=== PATIENT | male | born 1935 | race Caucasian/White ===

== ENCOUNTER → 2018-09-02 | Outpatient (CLI) | payer MEDICARE ==
[~2018-09-02] MED LIST: ASP325TEC PO; ASPIRIN CHEW81 MG PO; CLOPIDOGREL75 MG PO; FINASTERIDE5 MG PO; GABAPENTIN300 MG PO; GEMFIBROZIL1 GM PO; GLIPIZIDE5 MG PO; ISOSORBIDE MONO30 MG PO; LOSARTAN POTAS100 MG PO; METFORMIN HCL850 MG PO; METOPROLOL TART50 MG PO; NORVASC5 MG PO; OMEPRAZOLE40 MG PO; TAMSULOSIN HCL0.4 MG PO; ULTRAM 50MG50 MG PO
== END ==
LOC: CARD 11:40
PROVIDERS: ATTEND Thoracic Surgery (Cardiothoracic Vascular Surgery)
DX: I73.9 Peripheral vascular disease, unspecified (principal)
CPT/HCPCS: 93922; 93925

== ENCOUNTER → 2018-09-18 | Outpatient (CLI) | payer MEDICARE ==
[~2018-09-18] MED LIST changes: +IOPAMIDOL 370 MG/ML 200 ML INFUS..BTL INJ ONE; +SODIUM CHLORIDE 0.9% 100 ML 100 ML ONE; +SODIUM CHLORIDE 0.9% 250ML 500 ML ONE
[2018-09-18 10:16] LABS: CREATININE, SERUM 1.25 mg/dL (0.72-1.25)
--- NOTE | 2018-09-18 15:12 | Diagnostic Imaging Report ---
EXAM: CTA OF THE ABDOMINAL AORTA, PELVIC ARTERIES AND BILATERAL LOWER EXTREMITY. INDICATION: PVD COMPARISON: None TECHNIQUE: Multi-detector CT technology was employed. CTA of the abdomen and pelvis was performed after the administration of IV contrast. Inspiratory and expiratory images were performed with specific attention to the celiac trunk and SMA takeoff. IV CONTRAST: 100 mL of Isovue-370 ORAL CONTRAST: None Technique manipulation was accomplished to maintain the lowest dose possible to the patient. COMPLICATIONS: None RADIATION DOSE: Total DLP: 1081.42 mGy*cm Estimated effective dose: (DLP x 0.015 x size factor) mSv CTDIvol has been reviewed. It is below the limits set by the Radiation Protocol Committee (RPC). For optimization of anatomic evaluation, multiplanar reconstruction, maximum intensity projections, and advanced 3-D off-line postprocessing were performed on a dedicated stand-alone workstation under the direct supervision of the interpreting physician. FINDINGS: Potential study limitations: None. 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 There is no acute aortic pathology. Aortic plaques: Diffuse aortic [place] calcification with scattered plaque not appearing significant. The celiac axis, SMA and ERIC are patent. Mild plaque at the origin of the celiac trunk and SMA. Pelvis vessels: Negative bilateral common iliac occlusion. Right lower extremity: Right common femoral, profundus femoral, superficial femoral, and popliteal arteries are patent. There is a significant stenosis of the distal SFA. There is a patent trifurcation with posterior tibial artery and peroneal artery supply to the foot. Anterior tibial artery is occluded past the bifurcation. Left lower extremity: Right common femoral and profundus femoral arteries are patent. Occlusion of the left SFA at its origin with an isolated reconstituted SFA segment and then an occluded popliteal artery. Tibioperoneal trunk is reconstituted with an occluded anterior tibial artery and a posterior tibial artery extending to the foot. The peroneal artery occludes past its origin. LOWER CHEST: No masses or nodules ABDOMEN: The liver, gallbladder, spleen, pancreas, adrenal glands and kidneys appear normal. The adrenal glands appear normal. Both kidneys are normal in size, shape, and density. There is no abnormal mass or hydronephrosis. The bowel appears unremarkable. The appendix is not visualized. PELVIS: There is no significant retroperitoneal adenopathy. Normal-appearing bladder. Calcification within the prostate. BONES: Extensive degenerative changes of the spine. Rods present at L5 and S1. Anterior listhesis of L5 on S1 with disc space narrowing. IMPRESSION: 1. 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 2. Mild celiac trunk and SMA stenosis. 3. Critical mid right SFA stenosis. 4. Occluded left SFA with an isolated reconstituted segment and an occluded left popliteal artery. 5. Two-vessel calf runoff on the right. 6. Single vessel calf runoff on the left. Signed by: Dr. David Moraes DO on 09/18/2018 3:09 PM
== END ==
LOC: CT 09:30
PROVIDERS: ATTEND Thoracic Surgery (Cardiothoracic Vascular Surgery)
DX: I70.0 Atherosclerosis of aorta (principal); I73.9 Peripheral vascular disease, unspecified
CPT/HCPCS: 36415; 75635; 82565; 84520; J7050; Q9967

== ENCOUNTER → 2019-03-25 | Outpatient (CLI) | payer MEDICARE ==
[~2019-03-25] MED LIST changes: -IOPAMIDOL 370 MG/ML 200 ML INFUS..BTL INJ ONE; +REGADENOSON 0.4 MG/5 ML SYR IV ONE; -SODIUM CHLORIDE 0.9% 100 ML 100 ML ONE; -SODIUM CHLORIDE 0.9% 250ML 500 ML ONE
--- NOTE | 2019-03-25 20:41 | Myoview Stress Test ---
DATE OF STUDY: 03/25/2019 08:25:00 Stress Test - Treadmill ONLY PROCEDURE TITLE: Rest/stress single isotope SPECT imaging pharmacologic stress and gated SPECT imaging. INDICATION: Chest pain. PROCEDURE IN DETAIL: Pharmacologic stress testing was performed at rest and per protocol. The heart rate is 58 beats per minute at rest and increased to 81 beats per minute during the regadenoson infusion. The resting blood pressure was 165/63 mmHg and decreased to 138/57 mmHg, which is a normal response. The resting electrocardiogram demonstrated normal sinus rhythm with nonspecific ST-T wave abnormalities. There were no ST-segment changes suggestive of myocardial ischemia. Myocardial perfusion imaging was performed at rest following the injection of 11 mCi of tetrofosmin. At peak pharmacologic effect, the patient was injected with 33 mCi of tetrofosmin. Gated post-stress tomographic imaging was performed. FINDINGS: The overall quality of study is fair. Left ventricular cavity is noted to be enlarged on the rest and stress studies. There is a large severe perfusion defect in the apex on rest and stress. In addition, there is a medium-sized moderate perfusion defect in the distal septum at rest that is worse with stress. In addition, there is a large-sized moderate perfusion defect in the inferior wall at rest that is worse with stress. Gated SPECT imaging reveals apical akinesis and inferior and distal septal hypokinesis. Left ventricular ejection fraction is calculated to be 40%. IMPRESSION: Myocardial perfusion imaging is abnormal. 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 Erin Golden MD ABS/MODL /[id number]
== END ==
LOC: NM 08:17
PROVIDERS: ATTEND Internal Medicine Interventional Cardiology
DX: I25.118 Atherosclerotic heart disease of native coronary artery with other forms of angina pectoris (principal)
CPT/HCPCS: 78452; 93017; A9502; J2785